=== PATIENT | male | born 1935 | race Caucasian/White ===

== ENCOUNTER 2017-01-24 14:57 | Inpatient (IN) | payer OTHER ==
[~2017-01-24] VITALS: Ht 180.3 cm; Wt 63.0 kg
[2017-01-24] VITALS (7 sets, daily range): BP systolic 103–140; BP diastolic 73–95
[2017-01-24 16:02] LABS: ADD MIUA? YES; BILIRUBIN NEGATIVE; BLOOD MODERATE; COLOR YELLOW ((YELLOW)); GLUCOSE (STRIP) NEGATIVE; KETONES 20; LEUKOCYTES NEGATIVE; NITRITE NEGATIVE; PROTEIN (STRIP) 100; SPECIFIC GRAVITY 1.017 (1.000-1.030); UROBILINOGEN 0.2 MG/DL (0.2-1.0)
[2017-01-24 16:12] LABS: BACTERIA NONE SEEN /HPF; EPITHELIAL CELLS NONE SEEN /HPF; MUCUS TRACE /LPF; RED BLOOD CELLS 0-5 /HPF (0-5); UCUL ADDED? NO; WHITE BLOOD CELLS 0-5 /HPF (0-5)
[2017-01-24 16:43] LABS: EOSINOPHIL (%) 0 % (0-5); HEMATOCRIT 47.6 % (38.0-50.0); IMMATURE GRANULOCYTE (%) 0.5 % (0.0-0.7); IMMATURE GRANULOCYTE COUNT 0.1 K/uL; INSTRUMENT ABS NEUTROPHIL CT 10.6 K/uL; MCH 31.7 PG (29.0-34.0); MCHC 34.7 G/DL (30.0-36.0); MCV 91.4 FL (86-99); MEAN PLAT.VOLUME 10.4 uM^3 (9.0-12.4); MONOCYTE (%) 9.8 % (3-12); MONOCYTE COUNT 1.3 K/uL (0-0.8); NEUTROPHIL (%) 81.8 % (45-76); NEUTROPHIL COUNT 10.6 K/uL (1.8-6.4); PLATELET COUNT 162 K/uL (156-360); RBC DIS.WIDTH-CV 13.4 % (11.8-14.6); RBC DIS.WIDTH-SD 45.3 % (39-53); RED BLOOD COUNT 5.21 M/uL (4.00-5.50); WHITE BLOOD COUNT 12.9 K/uL (4.1-10.2)
[2017-01-24 16:51] LABS: CHLORIDE 101 mEq/L (99-109); SODIUM 140 mEq/L (136-147)
[2017-01-24 16:53] LABS: GLUCOSE 130 mg/dL (70-99)
[2017-01-24 16:55] LABS: ANION GAP 18 MEQ/L (2-14); TOTAL BILIRUBIN 1.6 mg/dL (0.0-1.0)
[2017-01-24 16:57] LABS: ALKALINE PHOSPHATASE 80 IU/L (3-129); GFR ESTIMATE (CALCULATED) > 59 mL/min/
[2017-01-24 16:58] LABS: UREA NITROGEN (BUN) 20 mg/dL (9-23)
[2017-01-24 17:01] LABS: TROP-I INTERPRETATION NEGATIVE; TROPONIN-I 0.03 ng/mL (0.0-0.30)
[2017-01-24 20:46] LABS: INTER. NORMALIZED RATIO 1.2; PROTHROMBIN TIME 12.5 (9.2-11.2); PTT 32.3 (25-32)
[2017-01-24] MEDS ORDERED: FLOMAX0.4 MG PO (21:04)
[2017-01-24] MEDS ORDERED: LO-DOSE ASPIRIN81 M2 PO (21:04)
[2017-01-24] MEDS ORDERED: TOPROL XL100 MG PO (21:04)
[2017-01-25 03:21] VITALS: BP 128/84
[2017-01-25 07:34] LABS: EOSINOPHIL (%) 0.4 % (0-5); EOSINOPHIL COUNT 0.1 K/uL (0-0.3); HEMATOCRIT 39.3 % (38.0-50.0); IMMATURE GRANULOCYTE (%) 0.4 % (0.0-0.7); IMMATURE GRANULOCYTE COUNT 0.1 K/uL; LYMPHOCYTE COUNT 1.9 K/uL (1.0-2.8); MCH 31.9 PG (29.0-34.0); MCHC 34.1 G/DL (30.0-36.0); MCV 93.6 FL (86-99); MEAN PLAT.VOLUME 10.6 uM^3 (9.0-12.4); MONOCYTE (%) 10.5 % (3-12); MONOCYTE COUNT 1.2 K/uL (0-0.8); NEUTROPHIL (%) 71.6 % (45-76); PLATELET COUNT 129 K/uL (156-360); RBC DIS.WIDTH-CV 13.9 % (11.8-14.6); RBC DIS.WIDTH-SD 47.4 % (39-53); WHITE BLOOD COUNT 11.2 K/uL (4.1-10.2)
[2017-01-25 07:40] LABS: ANION GAP 13 MEQ/L (2-14); CHLORIDE 102 MEQ/L (99-109); SAMPLE HEMOLYSIS CHECK 1; SAMPLE ICTERIC CHECK 0; SAMPLE LIPEMIA CHECK 0; SODIUM 140 MEQ/L (136-147); TOTAL BILIRUBIN 1.3 MG/DL (0.0-1.0)
[2017-01-25 07:41] LABS: POTASSIUM 3.6 MEQ/L (3.7-5.4)
[2017-01-25 07:45] LABS: ALKALINE PHOSPHATASE 63 IU/L (3-129); GFR ESTIMATE (CALCULATED) > 59 mL/min/; GLUCOSE 98 mg/dL (70-99); UREA NITROGEN (BUN) 19 mg/dL (9-23)
[2017-01-25 08:02] VITALS: BP 144/93
[2017-01-25 08:24] LABS: ERTH.SED.RATE 30 MM/HR (0-20)
[2017-01-25 16:46] VITALS: BP 175/84
[2017-01-25 17:34] LABS: ADD MIUA? YES; BILIRUBIN NEGATIVE; BLOOD MODERATE; COLOR AMBER ((YELLOW)); GLUCOSE (STRIP) NEGATIVE; KETONES 5; LEUKOCYTES NEGATIVE; NITRITE NEGATIVE; PROTEIN (STRIP) 100; SPECIFIC GRAVITY 1.028 (1.000-1.030); UROBILINOGEN 0.2 MG/DL (0.2-1.0)
[2017-01-25 18:28] LABS: BACTERIA 3+ /HPF; CASTS PRESENT /LPF; EPITHELIAL CELLS RARE /HPF; MUCUS 2+ /LPF; RED BLOOD CELLS 0-5 /HPF (0-5); UCUL ADDED? NO; WHITE BLOOD CELLS 0-5 /HPF (0-5)
[2017-01-25 18:29] LABS: COARSE GRANULAR CASTS 0-5 /LPF; CRYSTALS PRESENT; HYALINE CASTS 0-5 /LPF
[2017-01-25 18:30] LABS: AMORPHOUS URATES CRYSTALS 3+
[2017-01-25 18:51] VITALS: BP 148/96
[2017-01-25] MEDS ORDERED: ENDOCET 5-3251 EACH PO (22:47)
[2017-01-25] MEDS ORDERED: BACTRIM,SEPT1 TABLET PO (22:47)
[2017-01-26 03:59] VITALS: BP 172/94
[2017-01-26 04:27] VITALS: BP 176/90
[2017-01-26 07:49] VITALS: BP 173/96
[2017-01-26 11:38] LABS: APPEARANCE HAZY/YELLOW; MONONUCLEAR WBC'S 5 %; POLYNUCLEAR WBC'S 95 % (0-25); RED CELL COUNT 4000 /MM^3 (0-1); SYNOVIAL FLUID EOSINOPHILS 0 % (0-25); WHITE CELL COUNT 5898 /MM^3 (0-200.0)
[2017-01-26 17:23] LABS: APPEARANCE HAZY/YELLOW
[2017-01-26 17:31] LABS: RED CELL AREA COUNTED 0.4; RED CELL COUNT 1625 /MM^3 (0-1); RED CELL DILUTION 1
[2017-01-26 17:32] LABS: WBC AREA COUNTED 0.4; WBC DILUTION 1; WHITE CELL COUNT 19425 /MM^3 (0-200.0); WHITE CELL RAW COUNT 777
[2017-01-26 17:37] LABS: MONO RAW COUNT 2; MONONUCLEAR WBC'S 2 %; POLY RAW COUNT 98; POLYNUCLEAR WBC'S 98 % (0-25); SYNOVIAL FLUID EOSINOPHILS 0 % (0-25)
[2017-01-26 18:36] VITALS: BP 138/58
[2017-01-26 19:20] VITALS: BP 141/82
[2017-01-26 22:39] VITALS: BP 117/83
[2017-01-27 06:43] LABS: EOSINOPHIL (%) 0 % (0-5); HEMATOCRIT 34.2 % (38.0-50.0); IMMATURE GRANULOCYTE (%) 0.5 % (0.0-0.7); INSTRUMENT ABS NEUTROPHIL CT 7.5 K/uL; LYMPHOCYTE COUNT 0.5 K/uL (1.0-2.8); MCH 31.6 PG (29.0-34.0); MCHC 34.8 G/DL (30.0-36.0); MCV 90.7 FL (86-99); MEAN PLAT.VOLUME 10.5 uM^3 (9.0-12.4); MONOCYTE (%) 4.2 % (3-12); MONOCYTE COUNT 0.4 K/uL (0-0.8); NEUTROPHIL (%) 89.5 % (45-76); NEUTROPHIL COUNT 7.5 K/uL (1.8-6.4); PLATELET COUNT 164 K/uL (156-360); RBC DIS.WIDTH-CV 13.6 % (11.8-14.6); RBC DIS.WIDTH-SD 45.4 % (39-53); RED BLOOD COUNT 3.77 M/uL (4.00-5.50); WHITE BLOOD COUNT 8.4 K/uL (4.1-10.2)
[2017-01-27 07:08] LABS: ANION GAP 8 MEQ/L (2-14); CHLORIDE 104 MEQ/L (99-109); GFR ESTIMATE (CALCULATED) > 59 mL/min/; GLUCOSE 165 mg/dL (70-99); POTASSIUM 3.6 MEQ/L (3.7-5.4); SAMPLE HEMOLYSIS CHECK 0; SAMPLE ICTERIC CHECK 0; SAMPLE LIPEMIA CHECK 0; SODIUM 136 MEQ/L (136-147); UREA NITROGEN (BUN) 26 mg/dL (9-23)
[2017-01-27 07:50] VITALS: BP 180/104
[2017-01-27 10:58] VITALS: BP 127/76
[2017-01-27 14:15] VITALS: BP 121/73
[2017-01-27 15:13] VITALS: BP 143/65
[2017-01-27 19:51] VITALS: BP 146/72
[2017-01-27 22:50] VITALS: BP 159/96
[2017-01-28 08:12] VITALS: BP 135/84
[2017-01-28 11:45] VITALS: BP 153/70
[2017-01-28 12:52] LABS: ANION GAP 11 MEQ/L (2-14); CHLORIDE 103 MEQ/L (99-109); CREATINE KINASE 136 IU/L (1-294); GFR ESTIMATE (CALCULATED) > 59 mL/min/; POTASSIUM 3.8 MEQ/L (3.7-5.4); SAMPLE HEMOLYSIS CHECK 0; SAMPLE ICTERIC CHECK 0; SAMPLE LIPEMIA CHECK 0; SODIUM 139 MEQ/L (136-147); UREA NITROGEN (BUN) 30 mg/dL (9-23)
[2017-01-28 12:55] LABS: GLUCOSE 120 mg/dL (70-99)
[2017-01-28 16:01] VITALS: BP 144/64
[2017-01-28 19:17] VITALS: BP 182/80
[2017-01-28 22:13] VITALS: BP 162/54
[2017-01-29 02:41] VITALS: BP 158/97
[2017-01-29 07:43] LABS: ALKALINE PHOSPHATASE 65 IU/L (3-129); ANION GAP 9 MEQ/L (2-14); CHLORIDE 106 MEQ/L (99-109); GFR ESTIMATE (CALCULATED) > 59 mL/min/; GLUCOSE 99 mg/dL (70-99); SAMPLE HEMOLYSIS CHECK 1; SAMPLE ICTERIC CHECK 0; SAMPLE LIPEMIA CHECK 0; SODIUM 140 MEQ/L (136-147); UREA NITROGEN (BUN) 30 mg/dL (9-23)
[2017-01-29 07:46] LABS: POTASSIUM 4.3 MEQ/L (3.7-5.4); TOTAL BILIRUBIN 0.4 MG/DL (0.0-1.0)
[2017-01-29 08:05] LABS: HEMATOCRIT 33.8 % (38.0-50.0); MCH 31.5 PG (29.0-34.0); MCV 93.4 FL (86-99); RED BLOOD COUNT 3.62 M/uL (4.00-5.50); WHITE BLOOD COUNT 7.2 K/uL (4.1-10.2)
[2017-01-29 08:06] LABS: EOSINOPHIL (%) 0.4 % (0-5); IMMATURE GRANULOCYTE (%) 0.8 % (0.0-0.7); IMMATURE GRANULOCYTE COUNT 0.1 K/uL; LYMPHOCYTE COUNT 0.5 K/uL (1.0-2.8); MCHC 33.7 G/DL (30.0-36.0); MEAN PLAT.VOLUME 10.6 uM^3 (9.0-12.4); MONOCYTE COUNT 0.7 K/uL (0-0.8); NEUTROPHIL (%) 83.2 % (45-76); RBC DIS.WIDTH-SD 47.8 % (39-53)
[2017-01-29 08:07] LABS: PLATELET COUNT 246 K/uL (156-360)
[2017-01-29 08:21] VITALS: BP 164/97
[2017-01-29 12:27] LABS: URIC ACID 6.5 mg/dL (3.1-9.2)
[2017-01-29 13:13] VITALS: BP 152/93
[2017-01-29 20:22] VITALS: BP 147/79
[2017-01-30] VITALS: BP 177/82
[2017-01-30 04:10] VITALS: BP 178/99
[2017-01-30 06:05] LABS: EOSINOPHIL (%) 1.9 % (0-5); EOSINOPHIL COUNT 0.1 K/uL (0-0.3); HEMATOCRIT 36.1 % (38.0-50.0); IMMATURE GRANULOCYTE COUNT 0.1 K/uL; INSTRUMENT ABS NEUTROPHIL CT 4.2 K/uL; LYMPHOCYTE COUNT 0.8 K/uL (1.0-2.8); MCH 31.2 PG (29.0-34.0); MCHC 33.2 G/DL (30.0-36.0); MCV 93.8 FL (86-99); MEAN PLAT.VOLUME 10.1 uM^3 (9.0-12.4); MONOCYTE (%) 11.4 % (3-12); MONOCYTE COUNT 0.7 K/uL (0-0.8); NEUTROPHIL (%) 71.4 % (45-76); NEUTROPHIL COUNT 4.2 K/uL (1.8-6.4); PLATELET COUNT 283 K/uL (156-360); RED BLOOD COUNT 3.85 M/uL (4.00-5.50); WHITE BLOOD COUNT 5.9 K/uL (4.1-10.2)
[2017-01-30 06:41] LABS: ALKALINE PHOSPHATASE 59 IU/L (3-129); ANION GAP 6 MEQ/L (2-14); CHLORIDE 106 MEQ/L (99-109); GFR ESTIMATE (CALCULATED) > 59 mL/min/; GLUCOSE 90 mg/dL (70-99); SAMPLE HEMOLYSIS CHECK 1; SAMPLE ICTERIC CHECK 0; SAMPLE LIPEMIA CHECK 0; SODIUM 139 MEQ/L (136-147); UREA NITROGEN (BUN) 27 mg/dL (9-23)
[2017-01-30 06:42] LABS: POTASSIUM 4.8 MEQ/L (3.7-5.4)
[2017-01-30 06:43] LABS: TOTAL BILIRUBIN 0.5 MG/DL (0.0-1.0)
[2017-01-30 08:00] VITALS: BP 187/92
[2017-01-30 08:22] LABS: Estimated Average Glucose 123 mg/dL (70-123); HEMOGLOBIN A1c (GLYCOHEMOGLOB) 5.9 % HGB (Below 5.7)
[2017-01-30 13:49] LABS: POINT-OF-CARE METER ID UU13113675
[2017-01-30 16:15] VITALS: BP 148/88
[2017-01-30 19:55] VITALS: BP 181/99
[2017-01-31 00:30] VITALS: BP 162/68
[2017-01-31 04:26] VITALS: BP 180/74
[2017-01-31 07:30] VITALS: BP 146/71
[2017-01-31 09:18] LABS: HEMATOCRIT 35.9 % (38.0-50.0); MCH 31.2 PG (29.0-34.0); MCHC 32.9 G/DL (30.0-36.0); PLATELET COUNT 376 K/uL (156-360); RBC DIS.WIDTH-CV 13.9 % (11.8-14.6); RBC DIS.WIDTH-SD 48.7 % (39-53); RED BLOOD COUNT 3.78 M/uL (4.00-5.50); WHITE BLOOD COUNT 12.3 K/uL (4.1-10.2)
[2017-01-31 09:36] LABS: ANION GAP 7 MEQ/L (2-14); CHLORIDE 101 MEQ/L (99-109); GFR ESTIMATE (CALCULATED) > 59 mL/min/; GLUCOSE 110 mg/dL (70-99); POTASSIUM 4.6 MEQ/L (3.7-5.4); SAMPLE HEMOLYSIS CHECK 0; SAMPLE ICTERIC CHECK 0; SAMPLE LIPEMIA CHECK 0; SODIUM 138 MEQ/L (136-147); UREA NITROGEN (BUN) 22 mg/dL (9-23)
[2017-01-31 11:27] VITALS: BP 167/75
[2017-01-31 15:30] VITALS: BP 150/85
[2017-02-01 04:32] VITALS: BP 160/98
[2017-02-01 08:11] VITALS: BP 188/100
[2017-02-01 11:46] VITALS: BP 188/89
[2017-02-01 16:18] VITALS: BP 163/104
[2017-02-01 20:00] VITALS: BP 148/70
[2017-02-01 23:15] VITALS: BP 170/83
[2017-02-02 04:20] VITALS: BP 145/105
[2017-02-02 08:36] VITALS: BP 161/94
[2017-02-02 09:51] LABS: HEMATOCRIT 40.1 % (38.0-50.0); MCH 31.4 PG (29.0-34.0); MCHC 34.4 G/DL (30.0-36.0); MCV 91.1 FL (86-99); MEAN PLAT.VOLUME 9.8 uM^3 (9.0-12.4); PLATELET COUNT 327 K/uL (156-360); RBC DIS.WIDTH-CV 13.4 % (11.8-14.6); RBC DIS.WIDTH-SD 45.2 % (39-53); WHITE BLOOD COUNT 11.3 K/uL (4.1-10.2)
[2017-02-02 10:19] LABS: ANION GAP 16 MEQ/L (2-14); CHLORIDE 94 MEQ/L (99-109); GFR ESTIMATE (CALCULATED) > 59 mL/min/; SAMPLE HEMOLYSIS CHECK 0; SAMPLE ICTERIC CHECK 0; SAMPLE LIPEMIA CHECK 0; SODIUM 134 MEQ/L (136-147); UREA NITROGEN (BUN) 19 mg/dL (9-23)
[2017-02-02 10:20] LABS: GLUCOSE 74 mg/dL (70-99); POTASSIUM 3.3 MEQ/L (3.7-5.4)
[2017-02-02 11:24] LABS: MAGNESIUM 1.5 mg/dl (1.3-2.7)
[2017-02-02 11:32] VITALS: BP 153/91
[2017-02-02 16:31] VITALS: BP 137/93
[2017-02-02 19:45] VITALS: BP 169/92
[2017-02-02 23:17] VITALS: BP 166/80
[2017-02-03 05:17] VITALS: BP 118/74
[2017-02-03 08:31] VITALS: BP 170/90
[2017-02-03 11:07] LABS: ANION GAP 8 MEQ/L (2-14); CHLORIDE 95 MEQ/L (99-109); GFR ESTIMATE (CALCULATED) > 59 mL/min/; POTASSIUM 3.2 MEQ/L (3.7-5.4); SAMPLE HEMOLYSIS CHECK 0; SAMPLE ICTERIC CHECK 0; SAMPLE LIPEMIA CHECK 0; SODIUM 132 MEQ/L (136-147); UREA NITROGEN (BUN) 21 mg/dL (9-23)
[2017-02-03 11:08] LABS: GLUCOSE 178 mg/dL (70-99)
[2017-02-03 11:16] LABS: HEMATOCRIT 34.6 % (38.0-50.0); MCH 31.9 PG (29.0-34.0); MCV 91.3 FL (86-99); MEAN PLAT.VOLUME 9.9 uM^3 (9.0-12.4); PLATELET COUNT 296 K/uL (156-360); RBC DIS.WIDTH-CV 13.4 % (11.8-14.6); RBC DIS.WIDTH-SD 45.3 % (39-53); RED BLOOD COUNT 3.79 M/uL (4.00-5.50); WHITE BLOOD COUNT 11.2 K/uL (4.1-10.2)
[2017-02-03 11:32] VITALS: BP 170/90
[2017-02-03 14:32] LABS: BASE EXCESS 7.8 mEq/L (-3 to +3); CARBOXY HGB 2.3 % (0-5); COMMENTS - BLOOD GASES A+C+; DEVICE NC; MECHANICAL RATE 22 resp/min; METHEMOGLOBIN 1.5 % (0-1.5); O2 FLOW 2 L/MIN; PCO2 42 mm Hg (35-45); PO2 82 mm Hg (80-100); SITE LR; pH 7.49 (7.35-7.45)
[2017-02-03 16:30] VITALS: BP 138/95
[2017-02-03 17:55] LABS: BASE EXCESS 8.1 mEq/L (-3 to +3); BICARBONATE 32.8 mEq/L (22-26); CARBOXY HGB 2.1 % (0-5); DEVICE NCHH; FI02 30 %; METHEMOGLOBIN 1.4 % (0-1.5); O2 FLOW 30 L/MIN; PCO2 45 mm Hg (35-45); PO2 56 mm Hg (80-100); SITE RR; TOTAL RESP RATE 16 resp/min; pH 7.47 (7.35-7.45)
[2017-02-03 20:05] VITALS: BP 152/75
[2017-02-03 20:17] LABS: ANION GAP 6 MEQ/L (2-14); CHLORIDE 94 MEQ/L (99-109); GFR ESTIMATE (CALCULATED) > 59 mL/min/; GLUCOSE 125 mg/dL (70-99); POTASSIUM 3.6 MEQ/L (3.7-5.4); SAMPLE HEMOLYSIS CHECK 0; SAMPLE ICTERIC CHECK 0; SAMPLE LIPEMIA CHECK 0; SODIUM 132 MEQ/L (136-147); UREA NITROGEN (BUN) 20 mg/dL (9-23)
[2017-02-03 20:20] LABS: MAGNESIUM 1.9 mg/dl (1.3-2.7)
[2017-02-04] VITALS (7 sets, daily range): BP systolic 128–174; BP diastolic 75–89
[2017-02-04 03:02] LABS: TROP-I INTERPRETATION NEGATIVE; TROPONIN-I < 0.01 ng/mL (0.0-0.30)
[2017-02-04 09:06] LABS: HEMATOCRIT 36.1 % (38.0-50.0); MCH 31.2 PG (29.0-34.0); MCHC 33.8 G/DL (30.0-36.0); MCV 92.3 FL (86-99); MEAN PLAT.VOLUME 9.7 uM^3 (9.0-12.4); PLATELET COUNT 288 K/uL (156-360); RBC DIS.WIDTH-CV 13.5 % (11.8-14.6); RBC DIS.WIDTH-SD 45.5 % (39-53); RED BLOOD COUNT 3.91 M/uL (4.00-5.50)
[2017-02-04 09:28] LABS: ALKALINE PHOSPHATASE 52 IU/L (3-129); ANION GAP 7 MEQ/L (2-14); CHLORIDE 96 MEQ/L (99-109); GFR ESTIMATE (CALCULATED) > 59 mL/min/; GLUCOSE 102 mg/dL (70-99); POTASSIUM 3.4 MEQ/L (3.7-5.4); SAMPLE HEMOLYSIS CHECK 0; SAMPLE ICTERIC CHECK 0; SAMPLE LIPEMIA CHECK 0; SODIUM 135 MEQ/L (136-147); UREA NITROGEN (BUN) 16 mg/dL (9-23)
[2017-02-04 09:41] LABS: TOTAL BILIRUBIN 0.8 MG/DL (0.0-1.0)
[2017-02-04 09:51] LABS: TROP-I INTERPRETATION NEGATIVE; TROPONIN-I 0.01 ng/mL (0.0-0.30)
[2017-02-04 15:26] LABS: TROP-I INTERPRETATION NEGATIVE; TROPONIN-I < 0.01 ng/mL (0.0-0.30)
[2017-02-05 04:32] VITALS: BP 173/94
[2017-02-05 06:05] LABS: HEMATOCRIT 38.3 % (38.0-50.0); MCH 31.1 PG (29.0-34.0); MCHC 33.9 G/DL (30.0-36.0); MCV 91.6 FL (86-99); PLATELET COUNT 306 K/uL (156-360); RBC DIS.WIDTH-CV 13.3 % (11.8-14.6); RBC DIS.WIDTH-SD 45.1 % (39-53); RED BLOOD COUNT 4.18 M/uL (4.00-5.50); WHITE BLOOD COUNT 18.4 K/uL (4.1-10.2)
[2017-02-05 06:26] LABS: ANION GAP 16 MEQ/L (2-14); CHLORIDE 92 MEQ/L (99-109); GFR ESTIMATE (CALCULATED) > 59 mL/min/; GLUCOSE 88 mg/dL (70-99); POTASSIUM 3.5 MEQ/L (3.7-5.4); SAMPLE HEMOLYSIS CHECK 0; SAMPLE ICTERIC CHECK 0; SAMPLE LIPEMIA CHECK 0; SODIUM 136 MEQ/L (136-147); UREA NITROGEN (BUN) 18 mg/dL (9-23)
[2017-02-05 07:45] VITALS: BP 152/95
[2017-02-05] MEDS ORDERED: STARLIX60 MG PO (08:43)
[2017-02-05 11:20] VITALS: BP 148/82
[2017-02-05 15:12] VITALS: BP 147/67
[2017-02-05 19:42] VITALS: BP 161/90
[2017-02-05 23:23] VITALS: BP 160/73
[2017-02-06 04:02] VITALS: BP 155/87
[2017-02-06 08:35] LABS: HEMATOCRIT 34.1 % (38.0-50.0); MCH 31.2 PG (29.0-34.0); MCHC 33.7 G/DL (30.0-36.0); MCV 92.4 FL (86-99); MEAN PLAT.VOLUME 9.8 uM^3 (9.0-12.4); PLATELET COUNT 249 K/uL (156-360); RBC DIS.WIDTH-CV 13.3 % (11.8-14.6); RBC DIS.WIDTH-SD 45.3 % (39-53); RED BLOOD COUNT 3.69 M/uL (4.00-5.50); WHITE BLOOD COUNT 17.5 K/uL (4.1-10.2)
[2017-02-06 08:38] VITALS: BP 140/75
[2017-02-06 08:58] LABS: ANION GAP 8 MEQ/L (2-14); CHLORIDE 96 MEQ/L (99-109); GFR ESTIMATE (CALCULATED) > 59 mL/min/; GLUCOSE 90 mg/dL (70-99); POTASSIUM 3.1 MEQ/L (3.7-5.4); SAMPLE HEMOLYSIS CHECK 0; SAMPLE ICTERIC CHECK 0; SAMPLE LIPEMIA CHECK 0; SODIUM 136 MEQ/L (136-147); UREA NITROGEN (BUN) 20 mg/dL (9-23)
[2017-02-06 11:36] VITALS: BP 137/71
[2017-02-06 15:32] VITALS: BP 112/68
[2017-02-06 15:43] LABS: TROP-I INTERPRETATION NEGATIVE; TROPONIN-I 0.02 ng/mL (0.0-0.30)
[2017-02-06 19:50] VITALS: BP 124/59
[2017-02-06 23:25] VITALS: BP 131/62
[2017-02-07 02:48] VITALS: BP 142/75
[2017-02-07 06:23] LABS: HEMATOCRIT 31.7 % (38.0-50.0); MCH 31.2 PG (29.0-34.0); MCHC 33.4 G/DL (30.0-36.0); MCV 93.2 FL (86-99); PLATELET COUNT 239 K/uL (156-360); RBC DIS.WIDTH-CV 13.3 % (11.8-14.6); RBC DIS.WIDTH-SD 45.9 % (39-53)
[2017-02-07 06:37] LABS: ANION GAP 8 MEQ/L (2-14); CHLORIDE 99 MEQ/L (99-109); GFR ESTIMATE (CALCULATED) > 59 mL/min/; GLUCOSE 87 mg/dL (70-99); SAMPLE HEMOLYSIS CHECK 0; SAMPLE ICTERIC CHECK 0; SAMPLE LIPEMIA CHECK 0; SODIUM 138 MEQ/L (136-147); UREA NITROGEN (BUN) 22 mg/dL (9-23)
[2017-02-07 06:39] LABS: POTASSIUM 3.8 MEQ/L (3.7-5.4)
[2017-02-07 06:46] LABS: WHITE BLOOD COUNT 10.3 K/uL (4.1-10.2)
[2017-02-07 07:43] VITALS: BP 152/69
[2017-02-07 11:19] VITALS: BP 114/56
[2017-02-07 15:30] VITALS: BP 146/69
[2017-02-07 20:00] VITALS: BP 117/72
[2017-02-08 01:46] VITALS: BP 136/77
[2017-02-08 04:52] VITALS: BP 141/79
[2017-02-08 07:30] VITALS: BP 160/68
[2017-02-08 09:32] LABS: ANION GAP 7 MEQ/L (2-14); CHLORIDE 99 MEQ/L (99-109); GFR ESTIMATE (CALCULATED) > 59 mL/min/; SAMPLE HEMOLYSIS CHECK 0; SAMPLE ICTERIC CHECK 0; SAMPLE LIPEMIA CHECK 0; SODIUM 135 MEQ/L (136-147); UREA NITROGEN (BUN) 23 mg/dL (9-23)
[2017-02-08 09:37] LABS: GLUCOSE 111 mg/dL (70-99)
[2017-02-08 11:08] VITALS: BP 129/64
[2017-02-08] MEDS ORDERED: DOCUSATE SODIU100 MG PO (12:22)
[2017-02-08] MEDS ORDERED: APRESOLINE10 MG PO (12:22)
[2017-02-08] MEDS ORDERED: LIDOCAINE700 MG TD (12:22)
[2017-02-08] MEDS ORDERED: HYDROCODON-ACE1 EAC7 PO (12:22)
[2017-02-08] MEDS ORDERED: AMLODIPINE BESY10 MG PO (12:22)
[2017-02-08] MEDS ORDERED: TRAMADOL HCL50 MG PO (12:22)
[2017-02-08] MEDS ORDERED: AUGMENTIN500 MG PO (12:22)
[2017-02-08] MEDS ORDERED: LYRICA25 MG PO (12:22)
[2017-02-08 13:29] LABS: METH RESISTANT S AUREUS PCR POSITIVE (NEGATIVE)
[2017-02-08 13:30] LABS: PROBE CHECK PASS
[2017-02-08 17:14] VITALS: BP 123/56
== END 2017-02-08 19:20 | DRG 459 ==
LOC: EME 14:57 → EDOF 21:57 → 3EAST 21:57 → 5EAST 21:57 → 3EAST 01-30 14:42 → 4EAST 02-03 20:04
PROVIDERS: Emergency Medicine; Hospitalist; Internal Medicine; Orthopaedic Surgery Sports Medicine; Physician Assistant; Physician Assistant Medical
DX: M50.00 Cervical disc disorder with myelopathy, unspecified cervical region (principal); M48.02 Spinal stenosis, cervical region; G95.89 Other specified diseases of spinal cord; R65.10 Systemic inflammatory response syndrome (SIRS) of non-infectious origin without acute organ dysfunction; J96.01 Acute respiratory failure with hypoxia; J69.0 Pneumonitis due to inhalation of food and vomit; E87.1 Hypo-osmolality and hyponatremia; M48.06 Spinal stenosis, lumbar region; M51.16 Intervertebral disc disorders with radiculopathy, lumbar region; N40.1 Benign prostatic hyperplasia with lower urinary tract symptoms; R33.9 Retention of urine, unspecified; I10 Essential (primary) hypertension; M17.9 Osteoarthritis of knee, unspecified; M25.462 Effusion, left knee; M25.461 Effusion, right knee; M10.9 Gout, unspecified; R73.9 Hyperglycemia, unspecified; K59.00 Constipation, unspecified; E87.6 Hypokalemia; G89.29 Other chronic pain; M25.512 Pain in left shoulder; M25.552 Pain in left hip; Z79.82 Long term (current) use of aspirin; Z79.891 Long term (current) use of opiate analgesic; Z98.1 Arthrodesis status; Z91.19 Patient's noncompliance with other medical treatment and regimen; Z53.29 Procedure and treatment not carried out because of patient's decision for other reasons
CPT/HCPCS: 36600; 70450; 71010; 71275; 72020; 72040; 72100; 72125; 72131; 72158; 72192; 73030; 73502; 73560; 73610; 74150; 76000; 76604; 80048; 80048 91; 80053; 80202; 81003; 82550; 82803; 82948; 83036; 83605; 83735; 84100; 84484; 84550; 85025; 85027; 85379; 85610; 85651; 85730; 87040; 87070; 87075; 87205; 87641; 87801; 89051; 89060; 92526 GN; 92610 GN; 93005; 93306; 94640; 94640 76; 94667; 94760; 94799; 99202; 99281; 99285; C1713; J0330; J0360; J0690; J0696; J1170; J1580; J1644; J1885; J1940; J2250; J2270; J2405; J2543; J2710; J2930; J3010; J3301; J3370; J3475; J3480; J7030; J7050; J7120; J7509; S0020

== ENCOUNTER 2017-11-20 07:04 | Day surgery (SDC) | payer OTHER ==
[~2017-11-20] VITALS: Ht 180.3 cm; Wt 65.8 kg
[2017-11-20] VITALS (7 sets, daily range): BP systolic 137–178; BP diastolic 77–93
[~2017-11-20 07:04] MED LIST: AMLODIPINE BESY10 MG PO; APRESOLINE10 MG PO; AUGMENTIN500 MG PO; BACTRIM,SEPT1 TABLET PO; DOCUSATE SODIU100 MG PO; ENDOCET 5-3251 EACH PO; FLOMAX0.4 MG PO; HYDROCODON-ACE1 EAC7 PO; LIDOCAINE700 MG TD; LO-DOSE ASPIRIN81 M2 PO; LYRICA25 MG PO; NORVASC10 MG PO; ROXICODONE5 MG PO; STARLIX60 MG PO; TOPROL XL100 MG PO; TRAMADOL HCL50 MG PO
[2017-11-21 04:13] VITALS: BP 143/67
[2017-11-21 05:04] VITALS: BP 143/67
[2017-11-21 07:51] VITALS: BP 162/65
[2017-11-21 11:48] VITALS: BP 153/67
[2017-11-21 12:02] VITALS: BP 153/67
[2017-11-21 15:14] VITALS: BP 165/76
[2017-11-21] MEDS ORDERED: ROXICODONE5 MG PO (17:34)
[2017-11-21] MEDS ORDERED: TIZANIDINE HCL4 MG PO (17:34)
== END 2017-11-21 18:25 | disposition home or self-care (01) ==
LOC: SDC 07:04 → 2SOUTH 11:37 → 3EAST 11:37 → CANRESERV 11:55 → ENRESERV 11:55 → SDC 13:14 → ENRESERV 17:37 → 3EAST 20:28
PROVIDERS: Neurological Surgery
DX: M48.062 Spinal stenosis, lumbar region with neurogenic claudication (principal); M51.16 Intervertebral disc disorders with radiculopathy, lumbar region; G62.9 Polyneuropathy, unspecified; I10 Essential (primary) hypertension; E11.9 Type 2 diabetes mellitus without complications; N40.0 Benign prostatic hyperplasia without lower urinary tract symptoms; Z79.82 Long term (current) use of aspirin
CPT/HCPCS: 72020; 76000; 82948; 87641; G0378; J0131; J0330; J0690; J1100; J1170; J2405; J2710; J2765; J2930; J3010; J3370; J3480; S0020

== ENCOUNTER 2018-06-18 12:11 | Emergency (ER) | payer OTHER ==
[~2018-06-18] VITALS: Ht 180.3 cm; Wt 68.1 kg
[~2018-06-18 12:11] MED LIST changes: +TIZANIDINE HCL4 MG PO
[2018-06-18 14:45] VITALS: BP 172/86
== END 2018-06-18 14:46 | disposition home or self-care (01) ==
LOC: EME 12:11
DX: G89.29 Other chronic pain (principal); E11.9 Type 2 diabetes mellitus without complications; I10 Essential (primary) hypertension; N40.0 Benign prostatic hyperplasia without lower urinary tract symptoms; Z91.81 History of falling; Z79.82 Long term (current) use of aspirin
CPT/HCPCS: 99281; 99283